=== PATIENT | male | born 1940 | race Asian ===

== ENCOUNTER 2017-10-24 07:00 | Day surgery (SDC) | payer OTHER ==
[2017-10-23 13:53] VITALS: BMI 25.6
--- NOTE | 2017-10-23 15:49 | HP ---
- Patient Scheduled date of Surgery: 10/24/17 Scheduled Surgical Procedure: Phacoemulsification and cataract extraction with PCIOL Affected Eye: Right Chief Complaint (Indication for surgery): Decreased vision affecting ADLs - Ocular History Other Eye History: Other (ALEXANDRE, OHTN, Pingeuculum) Eye Medications: vigamox, alphagan , AT Previous Eye Surgery: none - Medical History Illnesses: Cardiac Disorders (Chest pain, SOB, MA, Valve disease) (s/p CABG, GOUT), Hypertension, Hypercholesterolemia Current Medications: Ambulatory Orders Allopurinol [Zyloprim -] 100 mg PO DAILY 10/23/17 Amlodipine Besylate 5 mg PO DAILY 10/23/17 Aspirin Coated [Ecotrin -] 162 mg PO DAILY 10/23/17 Metoprolol Tartrate 25 mg PO BID 10/23/17 Olmesartan Medoxomil 20 mg PO DAILY 10/23/17 Simvastatin 40 mg PO HS 10/23/17 Allergies/Adverse Reactions: Allergies Allergy/AdvReac Type Severity Reaction Status Date / Time No Known Drug Allergies Allergy Verified 10/23/17 14:00 Ocular Examination - Best Corrected Visual Acuity Distance: Right eye: 20/40- Distance: Left eye: 20/40- - External/Slit Lamp Examination Abnormalities: decreased Tbut - Intraocular Pressure Intraocular Pressure - Right eye: 22 Intraocular Pressure-Left eye: 21 - Lens Lens: 3+ NS - Vitreous/Retina Vitreous/Retina: c:d 0.2 m/v/p wnl - Special Examination M - Right eye: -2.00-1.75 x100 M - Left eye: -2.00 -1.75 x 080 K - Right eye: 44.25/44.75 x 010 K - Left eye: 43.5/44.5 x 170 AL - Right eye: 23.10 AL - Left eye: 22.99 IOL bag: +21.5 d AUOOTO IOL sulcus: 21.0 MN60 AC IOL AC: +18.0 D MTA 4UO - Impression Impression: Cataract Right Eye (and MIOSIS) - Plan Plan: Phacoemulsification and cataract extraction - IOL Right eye (Using malayugan ring) Post-hospital care will be provided in office on: 10/24/17
[~2017-10-24 07:00] MED LIST: ACETAMINOPHEN 325 MG TABLET (FP) PO PRN; CIPROFLOXACIN HCL 0.3% OPHTH 2.5ML BOTTLE OP SCH; KETOROLAC TROMETHAMINE 0.5% 5 ML BOTTLE OPTHALMIC OP SCH; PHENYLEPHRINE 2.5% OPHTH SOLN 15 ML BOTTLE OP SCH; TOBRAMYCIN/DEXAMETHASONE OPHTH. OINTMENT 1 TUBE OD ONE; TROPICAMIDE 1% OPHTH SOLN 15 ML BOTTLE OP SCH
[2017-10-24] MEDS ORDERED: LIDOCAINE HCL 2% JELLY (5 ML/TUBE) TP ONE (08:50)
[2017-10-24] MEDS ORDERED: POVIDONE-IODINE 5% OPHTHALMIC PREP 30 ML SOLUTION OD ONE (08:52)
[2017-10-24] MEDS ORDERED: BSS (NA/CA/MG/K) BALANCED SALT SOLUTION OPHTH SOLN 15 ML BOTTLE OD ONE (08:59)
[2017-10-24] MEDS ORDERED: EPINEPHrine/PF 1 MG/1 ML (1:1,000) AMPULE SQ ONE ×2 (08:59→09:03)
[2017-10-24] MEDS ORDERED: LIDOCAINE HCL 1% PRESERVATIVE FREE - 30ML VIAL IO ONE (08:59)
[2017-10-24] MEDS ORDERED: CHONDROITIN SU A/HYALUR SOD 1 KIT IO ONE (08:59)
[2017-10-24] MEDS ORDERED: TOBRAMYCIN/DEXAMETHASONE OPHTH. OINTMENT 1 TUBE OD ONE (09:19)
--- NOTE | 2017-10-24 09:41 | OP ---
Ophthalmology Operative Note Pre-Operative Diagnosis: Cataract Affected Eye: Right Operation: Phacoemulsification and cataract extraction with PCIOL Post-Operative Diagnosis: Other (mature cataract right eye) Finisher Operator: None Anesthesiologist: Bakari Joaquin Anesthesia: Topical Specimens Removed: none Estimated blood loss: < 1 cc Drains & Tubes with Location: none Operative Report Dictated: Yes
--- NOTE | 2017-10-24 09:41 | HP ---
History & Physical Update - History History: No Change - Physical Physical: No Change - Assessment Assessment: No Change - Plan Plan: No Change (Dr. Tesfaye's note from 10/16/17 reviewed no change)
--- NOTE | 2017-10-24 10:03 | OP ---
DATE OF OPERATION: 10/24/2017 PREOPERATIVE DIAGNOSIS: Nuclear sclerotic cataract, right eye. POSTOPERATIVE DIAGNOSIS: Mature cataract, right eye. PROCEDURE: Phacoemulsification and cataract extraction with insertion of posterior chamber intraocular lens, right eye. SURGEON: Loren Bejarano MD FIREARMS INSPECTOR: None. ANESTHESIA: Topical. ANESTHESIOLOGIST: Bakari Joaquin CRNA OPERATIVE PROCEDURE: The patient received 2% lidocaine gel in the holding area and then was brought to the operating room and gently sedated and prepped and draped in the usual sterile fashion so as to expose only the right eye. Ophthalmic Betadine was instilled into the inferior fornix. The lashes were taped out of the surgical field. An eyelid speculum was placed into the right eye. A paracentesis was made in superior clear cornea at the limbus. Next, 0.5 mL of nonpreserved lidocaine 1% was injected into the anterior chamber, and 1 mL of dilute epinephrine was injected into the anterior chamber. Viscoelastic material was instilled into the anterior chamber via the paracentesis. A 2.4-mm keratome was then used to create the main incision in temporal clear cornea at the limbus. A continuous curvilinear capsulorrhexis was performed using a cystotome and Utrata forceps. Hydrodissection of the lens cortex was performed using BSS on a cannula until the nucleus was noted to be freely rotating. The phacoemulsification tip was inserted via the main wound and used to sculpt 2 perpendicular grooves into the lens nucleus. The nucleus was cracked into 4 quadrants. Each quadrant was lifted out of the capsule and into the iris plane and individually phacoemulsified. The remaining cortical material was then aspirated using the irrigation and aspiration port. The capsular bag was inflated using Provisc, and a preloaded AcrySof lens model [id number], power +21.5 diopters was injected into the capsular bag and centered using a Sinskey hook. The residual viscoelastic material was removed from the anterior chamber using irrigation and aspiration. The wound edges were hydrated using BSS. The wound was tested for leakage. It was found to be watertight. TobraDex ointment was placed in the eye. The speculum was removed from the eye, and the eyelid was closed. A sterile dressing and shield were placed over the eye, and the patient was transferred to the recovery room in stable condition, told to follow up in one day. LOREN BEJARANO M.D. [id number]
[2017-10-24 15:17] VITALS: BP 115/64; PULSE 64
== END 2017-10-24 09:35 | disposition home or self-care (01) ==
LOC: JASU-SURG 07:00
PROVIDERS: ATTEND Ophthalmology
PROC: 08RJ3JZ Replacement of Right Lens with Synthetic Substitute, Percutaneous Approach (ICD-10-PCS; principal; 2017-10-24 08:30)
DX: H25.091 Other age-related incipient cataract, right eye (principal)

== ENCOUNTER 2017-11-14 06:10 | Day surgery (SDC) | payer OTHER ==
[2017-11-12 09:35] VITALS: BMI 25.6
[~2017-11-14 06:10] MED LIST changes: -ACETAMINOPHEN 325 MG TABLET (FP) PO PRN; -CIPROFLOXACIN HCL 0.3% OPHTH 2.5ML BOTTLE OP SCH; -KETOROLAC TROMETHAMINE 0.5% 5 ML BOTTLE OPTHALMIC OP SCH; -PHENYLEPHRINE 2.5% OPHTH SOLN 15 ML BOTTLE OP SCH; -TOBRAMYCIN/DEXAMETHASONE OPHTH. OINTMENT 1 TUBE OD ONE; +TOBRAMYCIN/DEXAMETHASONE OPHTH. OINTMENT 1 TUBE TP ONE; -TROPICAMIDE 1% OPHTH SOLN 15 ML BOTTLE OP SCH
[2017-11-14] MEDS: MOXIFLOXACIN HCL 0.5% OPHTHALMIC 3 ML BOTTLE ONE ×3 (06:50→07:15)
[2017-11-14] MEDS: TROPICAMIDE 1% OPHTH SOLN 15 ML BOTTLE ONE ×3 (06:50→07:15)
[2017-11-14] MEDS: OFLOXACIN 0.3% OPHTHALMIC SOLUTION 5 ML BOTTLE ONE ×3 (06:50→07:15)
[2017-11-14] MEDS: PHENYLEPHRINE 2.5% OPHTH SOLN 15 ML BOTTLE ONE ×2 (06:50→07:00)
[2017-11-14] MEDS ORDERED: TRYPAN BLUE 0.5 ML DISP.SYRIN ONE (07:04)
[2017-11-14] MEDS ORDERED: CHONDROITIN SU A/HYALUR SOD 1 KIT ONE (07:04)
[2017-11-14] MEDS ORDERED: EPINEPHrine/PF 1 MG/1 ML (1:1,000) AMPULE ONE ×2 (07:10→07:35)
[2017-11-14] MEDS ORDERED: LIDOCAINE HCL 2% JELLY (5 ML/TUBE) ONE (07:10)
[2017-11-14] MEDS ORDERED: TOBRAMYCIN/DEXAMETHASONE OPHTH. OINTMENT 1 TUBE ONE (07:10)
[2017-11-14] MEDS ORDERED: LIDOCAINE HCL/PF 1% SDV 5ML VIAL ONE (07:11)
[2017-11-14] MEDS ORDERED: POVIDONE-IODINE 5% OPHTHALMIC PREP 30 ML SOLUTION ONE (07:11)
[2017-11-14] MEDS ORDERED: PHENYLEPHRINE 2.5% OPHTH SOLN 15 ML BOTTLE OS ONE (07:15)
[2017-11-14] MEDS ORDERED: ACETAMINOPHEN 325 MG TABLET (FP) PO PRN (07:27)
--- NOTE | 2017-11-14 07:27 | HP ---
- Patient Scheduled date of Surgery: 11/14/17 Scheduled Surgical Procedure: Phacoemulsification and cataract extraction with PCIOL Affected Eye: Left Chief Complaint (Indication for surgery): Decreased vision affecting ADLs - Ocular History Other Eye History: Other (OHTN) Eye Medications: Alphagan P 2/2, vigamox 0/3 Previous Eye Surgery: s/p ce/pciol OD - Medical History Illnesses: Cardiac Disorders (Chest pain, SOB, MD, Valve disease) (s/p CABG), Hypertension, Hypercholesterolemia, Other (gout) Current Medications: Ambulatory Orders Allopurinol [Zyloprim -] 100 mg PO DAILY 10/23/17 Amlodipine Besylate 5 mg PO DAILY 10/23/17 Aspirin Coated [Ecotrin -] 162 mg PO DAILY 10/23/17 Metoprolol Tartrate 25 mg PO BID 10/23/17 Olmesartan Medoxomil 20 mg PO DAILY 10/23/17 Simvastatin 40 mg PO HS 10/23/17 Allergies/Adverse Reactions: Allergies Allergy/AdvReac Type Severity Reaction Status Date / Time No Known Drug Allergies Allergy Verified 11/14/17 07:13 Ocular Examination - Best Corrected Visual Acuity Distance: Right eye: 20/20- Distance: Left eye: 20/40- - External/Slit Lamp Examination Abnormalities: decreased tbut, melanosis, arcus - Intraocular Pressure Intraocular Pressure - Right eye: 16 Intraocular Pressure-Left eye: 21 - Lens Lens: 3+ NS - Vitreous/Retina Vitreous/Retina: c;d 0.2 m/v wnl, p very hazy view - Special Examination M - Right eye: -0.50-1.00 x 120 M - Left eye: -2.00-1.75 x 080 K - Right eye: 44.25/45.50 x 120 K - Left eye: 43.50/44.50x 165 AL - Left eye: 22.99 IOL bag: +21.5 AUOOTO IOL sulcus: +20.5 MN60 AC IOL AC: +17.5 [id number] - Impression Impression: Cataract Left Eye - Plan Plan: Phacoemulsification and cataract extraction - IOL Left eye Post-hospital care will be provided in office on: 11/15/17
--- NOTE | 2017-11-14 07:28 | HP ---
History & Physical Update - History History: No Change - Physical Physical: No Change - Assessment Assessment: No Change - Plan Plan: No Change (NO change from Dr. Ga's H and P from 10/16/17)
[2017-11-14] MEDS ORDERED: CIPROFLOXACIN HCL 0.3% OPHTH 2.5ML BOTTLE OP SCH (07:30)
[2017-11-14] MEDS ORDERED: TROPICAMIDE 1% OPHTH SOLN 15 ML BOTTLE OP SCH (07:30)
[2017-11-14] MEDS ORDERED: PHENYLEPHRINE 2.5% OPHTH SOLN 15 ML BOTTLE OP SCH (07:30)
[2017-11-14] MEDS ORDERED: KETOROLAC TROMETHAMINE 0.5% 5 ML BOTTLE OPTHALMIC OP SCH (07:30)
[2017-11-14] MEDS ORDERED: MIDAZOLAM HCL 2 MG/2 ML SINGLE DOSE VIAL ONE (07:37)
[2017-11-14] MEDS ORDERED: LIDOCAINE HCL 2% JELLY (5 ML/TUBE) TP ONE (07:38)
[2017-11-14] MEDS ORDERED: LIDOCAINE HCL 1% PRESERVATIVE FREE - 30ML VIAL IO ONE (07:50)
[2017-11-14] MEDS ORDERED: CHONDROITIN SU A/HYALUR SOD 1 KIT IO ONE (07:51)
[2017-11-14] MEDS ORDERED: EPINEPHrine/PF 1 MG/1 ML (1:1,000) AMPULE SQ ONE (08:00)
[2017-11-14] MEDS ORDERED: TOBRAMYCIN/DEXAMETHASONE OPHTH. OINTMENT 1 TUBE TP ONE (08:21)
--- NOTE | 2017-11-14 08:25 | OP ---
Ophthalmology Operative Note Pre-Operative Diagnosis: Cataract Affected Eye: Left Operation: Phacoemulsification and cataract extraction with PCIOL Findings: NS cataract OS Post-Operative Diagnosis: Same as Pre-op Rum Processing Operator: None Anesthesiologist: Inocencia Zhao Anesthesia: Topical Specimens Removed: none Estimated blood loss: < 1 cc Drains & Tubes with Location: none Operative Report Dictated: Yes
--- NOTE | 2017-11-14 09:05 | OP ---
DATE OF OPERATION: 11/14/2017 PREOPERATIVE DIAGNOSIS: Nuclear sclerotic cataract, left eye. POSTOPERATIVE DIAGNOSIS: Nuclear sclerotic cataract, left eye. PROCEDURE: Phacoemulsification and cataract extraction with insertion of posterior chamber intraocular lens, left eye. SURGEON: Loren Bejarano MD ANESTHESIA: Topical. ANESTHESIOLOGIST: Inocencia Zhao MD OPERATIVE PROCEDURE: The patient received 2% lidocaine gel and was then gently sedated and prepped and draped in the usual sterile fashion so as to expose only the left eye. Ophthalmic Betadine was instilled into the inferior fornix. The lashes were taped out of the surgical field. An eyelid speculum was placed into the left eye. A paracentesis was made in inferior clear cornea at the limbus. Next, 0.5 mL of nonpreserved lidocaine 1% was injected into the anterior chamber. Then, 0.8 mL of dilute epinephrine 1:10,000 was injected into the anterior chamber. Viscoelastic material was instilled into the anterior chamber via the paracentesis. A 2.4-mm keratome was then used to create the main incision in temporal clear cornea at the limbus. A continuous curvilinear capsulorrhexis was performed using cystotome and Utrata forceps. Hydrodissection of the lens cortex was performed using BSS on a cannula until the nucleus was noted to be freely rotating. The phacoemulsification tip was inserted via the main wound and used to sculpt 2 perpendicular grooves into the lens nucleus. The nucleus was cracked into 4 quadrants. Each quadrant was lifted out of the capsule into the iris plane and individually phacoemulsified. The remaining cortical material was then aspirated using the irrigation and aspiration port. The capsular bag was inflated using Provisc, and a preloaded AcrySof lens model [id number], power +21.5 diopters was injected into the capsular bag. It was centered using a Sinskey hook. The residual viscoelastic material was removed from the anterior chamber using irrigation and aspiration. The wound edges were hydrated using BSS. The wound was tested for leakage. It was found to be watertight. Therefore, TobraDex ointment was placed into the eye. The speculum was removed from the eye, and the eyelid was closed. A sterile dressing and shield were placed over the eye, and the patient was transferred to the recovery room in stable condition, told to follow up in 1 day. LOREN BEJARANO M.D. [id number]
[2017-11-14 14:30] VITALS: PULSE 76; TEMP 97.8
[2017-11-14 14:43] VITALS: BP 130/68
== END 2017-11-14 10:00 | disposition home or self-care (01) ==
LOC: JASU-SURG 06:10
PROVIDERS: ATTEND Ophthalmology
PROC: 08RK3JZ Replacement of Left Lens with Synthetic Substitute, Percutaneous Approach (ICD-10-PCS; principal; 2017-11-14 07:30)
DX: H25.12 Age-related nuclear cataract, left eye (principal)